=== PATIENT | male | born 1950 | race Caucasian/White ===

== ENCOUNTER → 2016-11-19 | Outpatient (CLI) | payer OTHER ==
[~2016-11-19] MED LIST: BUDE10.22 INH; CALC1CAP8 PO; IPRA4AER INH; LEFL20TA16 PO; MULT-658 PO; MYCO500T3 PO; OMEP40CA6 PO; PRED5TAB PO; TRAZ300T2 PO; enbrel SC; potassium PO; zenpep PO
== END | disposition home or self-care (01) ==
LOC: RAD 08:09
PROVIDERS: ATTEND Family Medicine
DX: M41.84 Other forms of scoliosis, thoracic region (principal); M50.30 Other cervical disc degeneration, unspecified cervical region
CPT/HCPCS: 72082